=== PATIENT | male | born 1950 | race Caucasian/White ===

== ENCOUNTER 2024-05-07 07:23 | Day surgery (SDC) | payer OTHER | END 2024-05-07 19:20 | disposition home or self-care (01) | LOC: AMB-ENDOS 07:23 | PROVIDERS: ATTEND Internal Medicine | DX: K63.89 Other specified diseases of intestine (principal); K80.20 Calculus of gallbladder without cholecystitis without obstruction; K86.2 Cyst of pancreas; R93.3 Abnormal findings on diagnostic imaging of other parts of digestive tract; R93.2 Abnormal findings on diagnostic imaging of liver and biliary tract; I10 Essential (primary) hypertension ==